=== PATIENT | male | born 1995 | race Caucasian/White ===

== ENCOUNTER 2019-05-30 16:26 | Emergency (ER) | payer SELFPAY ==
[~2019-05-30] VITALS: Ht 182.9 cm; Wt 61.4 kg
[2019-05-30] MEDS ORDERED: AZAT50TA17 PO (16:38)
[2019-05-30 17:14] VITALS: BP 140/85
[2019-05-30] MEDS ORDERED: ACETAMINOPHEN/CODEINE 300-30 MG TABLET PO ONE (17:15)
[2019-05-30] MEDS ORDERED: PENICILLIN V POTASSIUM 500 MG TABLET PO ONE (17:15)
== END 2019-05-30 17:29 | disposition home or self-care (01) ==
LOC: EMS 16:26
DX: K02.9 Dental caries, unspecified (principal); Z88.6 Allergy status to analgesic agent